=== PATIENT | male | born 1975 | race Caucasian/White ===

== ENCOUNTER 2022-02-08 06:09 | Emergency (ER) | payer MEDICARE, MEDICAID ==
[~2022-02-08] VITALS: Ht 167.6 cm; Wt 66.7 kg
--- NOTE | 2022-02-08 06:38 | NUR ---
Patient BIB [facility] from home for c/o left bravo laceration after a trip and fall about 45mins [employer].
--- NOTE | 2022-02-08 06:40 | NUR ---
Dr. Reyez on bedside for MSE.
--- NOTE | 2022-02-08 06:45 | NUR ---
Irrigated wound with NS 1L.
[2022-02-08] MEDS ORDERED: LIDOCAINE 1%-EPI 1:100,000 20 ML VIAL ONE (06:52)
[2022-02-08] MEDS ORDERED: LIDOCAINE 1%-EPI 1:100,000 20 ML VIAL IJ ONE (07:00)
--- NOTE | 2022-02-08 07:20 | NUR ---
Report given to day shift SILVER Morley.
--- NOTE | 2022-02-08 08:27 | NUR ---
Patient is resting comfortably on gurney, still for MD to repair the wound@this time.
--- NOTE | 2022-02-08 10:09 | NUR ---
wants more suture material (4.0 prolene) to finish his laceration repair. Message was left earlier in the voicemail of [employer] dept. Nursing supervisor sawmill Annalise was also notified by phone earlier. Face to face notification done to [employer] staff Blaine.
--- NOTE | 2022-02-08 10:10 | NUR ---
@bedside, wound repair continues.
[2022-02-08] MEDS ORDERED: LIDOCAINE VISCUS 2% 15 ML UDC ONE (10:25)
[2022-02-08] MEDS ORDERED: CEPH500C2 PO ×2 (10:43→11:23)
--- NOTE | 2022-02-08 10:43 | NUR ---
Note lester in EDM - 02/08/22 at 1119 by DANA wants more suture material (4.0 prolene) to finish his laceration repair. Message was left earlier in the voicemail of [employer] dept. Nursing mold yard supervisor Annalise was also notified by phone earlier. Face to face notification done to [employer] staff
--- NOTE | 2022-02-08 11:39 | NUR ---
Patient discharged to home in stable condition via wheelchair with caregiver/special needs bus driver Selvin. Written and verbal after care instructions given to patient & caregiver/special needs bus driver Selvin. Patient and caregiver verbalized understanding and compliance of instructions. Stressed follow up with primary doctor or return to ER for worsening s/s. Extra dressings provided per MD's order.
== END 2022-02-08 11:39 | disposition home or self-care (01) ==
LOC: ER 06:16
DX: S81.811A Laceration without foreign body, right lower leg, initial encounter (principal); W18.39XA Other fall on same level, initial encounter; Y92.012 Bathroom of single-family (private) house as the place of occurrence of the external cause; E75.02 Tay-Sachs disease; F31.9 Bipolar disorder, unspecified; Z88.8 Allergy status to other drugs, medicaments and biological substances
CPT/HCPCS: 12036; 99284; 73564; 73590; J3490; A4663